=== PATIENT | male | born 1980 | race Caucasian/White ===

== ENCOUNTER 2018-07-18 08:05 | Emergency (ER) | payer OTHER, MEDICAID, SELFPAY ==
[2018-07-18 08:29] VITALS: BP 146/103; PULSE 95; RESP 16; TEMP 36.6; O2SAT 100; BMI 28.7
[2018-07-18 09:46] LABS: Add Manual Diff / Slide Review NO; Basophils Absolute Auto 0 /uL (0-100); Basophils Percent Auto 0.5 % (0-2); Eosinophils Absolute Auto 100 /uL (0-450); Eosinophils Percent Auto 1.4 % (2-4); Hemoglobin 15.5 g/dL (13.5-17.5); Lymphocytes Absolute Auto 2000 /uL (1100-4500); Lymphocytes Percent Auto 25.8 % (25-40); Mean Corpuscular HGB Conc 34.3 % (30-36); Mean Corpuscular Volume 87.4 fL (80-100); Monocytes Absolute Auto 800 /uL (0-900); Monocytes Percent Auto 10.5 % (3-14); Neutrophils Absolute Auto 4700 /uL (1500-7000); Neutrophils Percent Auto 61.8 % (50-75); Platelet Count 239 X10^3/uL (150-400); Red Blood Cell Count 5.15 X10^6/uL (4.5-5.9); Red Cell Distribution Width 12.8 % (11.6-14.8); White Blood Cell Count 7.6 X10^3/uL (4.5-11.0)
[2018-07-18 10:01] LABS: Acetaminophen < 10 ug/mL (10-30); Alanine Aminotransferase 29 IU/L (21-72); Albumin 4.5 g/dL (3.5-5.0); Albumin Globulin Ratio 1.3 (1.0-2.8); Alkaline Phosphatase 76 U/L (38-126); Aspartate Aminotransferase 18 IU/L (17-59); BUN Creatinine Ratio 18.8 (6-22); Bilirubin Total 0.3 mg/dL (0.2-1.3); Blood Urea Nitrogen 15 mg/dL (9-20); Calcium 8.9 mg/dL (8.4-10.2); Carbon Dioxide 30 mmol/L (22-32); Chloride 99 mmol/L (98-107); Estimated Glomerular Filt Rate > 60.0 mL/min (>60); Ethanol (ETOH) < 10 mg/dL; Globulin 3.4 g/dL (1.7-4.1); Glucose 94 mg/dL (70-100); HEMOLYSIS < 15 (0-50); Sodium 139 mmol/L (137-145); Total Protein 7.9 g/dL (6.3-8.2)
[2018-07-18 10:05] LABS: Salicylate < 1.0 mg/dL (<20)
[2018-07-18 10:43] LABS: Thyroid Stimulating Hormone 0.81 uIU/mL (0.47-4.68)
--- NOTE | 2018-07-18 12:12 | ED.PSYCH ---
HPI - Psych General Chief Complaint: Psychiatric Symptoms Stated Complaint: Not feeling right in head Time Seen by Provider: 07/18/18 10:27 Source: patient and family Mode of arrival: ambulatory Limitations: no limitations History of Present Illness HPI Narrative: Patient complains of auditory hallucinations for about the last 6 months, which have gotten especially worse over the last 6 weeks and noticeably worse over the last 2 weeks. Patient states the last several days have been the worst, and that it is as though somebody has a radius station plane his head. Patient states this sometimes he just hears mumbling but then he will hear the voices say negative things about him, such as that he is a ?loser?. Patient denies any suicidal ideation, and he denies the voices telling him to harm himself or others. He states that he has a job, and that it is hard because he feels that the voices interfere with his ability to stay focused at work. Patient does admit to taking methamphetamines for the last couple of years, though he was able to get clean for some months. He states about a year ago, he smelled meth from somebody else using it, and he relapsed. Patient states that he initially was just using the methamphetamines every few days, but now he uses every day. He states that this has been the case for the last several months. Patient also notes that his Paxil, which he is on for anxiety, was increased in dose about 6 weeks ago, and that the symptoms seem to have been getting worse it is that. Patient denies any history of hallucinations ever prior to 6 months ago. He denies a history of depression. 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 Patient also states that his committed suicide while he was deployed, after 8 to mold to us stretch in the relationship, and that happened around this time of year. Patient states that he has been thinking about his a lot more in recent weeks. He states the lack of closure after the difficulties in the relationship, leading up to this suicide, left him with a lot of issues. Patient denies any history of inpatient psychiatric or drug rehabilitation intervention, but states he is interested in doing drug rehab, as he really wants to quit using meth for good. He states that he is otherwise healthy, and not on any other medications. No other complaints at this time. No chest pain, shortness of breath, nausea, vomiting, abdominal pain, dysuria, fevers, cough, or any other physical discomforts. He is not having any visual hallucinations or tactile hallucinations. Related Data Home Medications Medication Instructions Recorded Confirmed paroxetine HCl 40 mg PO DAILY 07/18/18 07/18/18 Allergies Allergy/AdvReac Type Severity Reaction Status Date / Time morphine Allergy Verified 07/18/18 13:34 Review of Systems Constitutional Denies chills, Denies fever(s), Denies lethargy and Denies weakness Eyes Denies change in vision, Denies eye discharge, Denies irritation and Denies loss of vision ENT Ears, Nose, Mouth, and Throat: Denies change in voice, Denies neck pain and Denies sore throat Cardiovascular Denies chest pain, Denies irregular heart rhythm, Denies lightheadedness, Denies palpitations, Denies dyspnea, Denies dyspnea on exertion and Denies orthopnea Respiratory Denies cough, Denies dyspnea, Denies dyspnea on exertion and Denies wheezing Gastrointestinal Gastrointestinal: Denies abdominal pain, Denies change in bowel habits, Denies diarrhea, Denies nausea and Denies vomiting Genitourinary Denies hematuria, Denies flank pain, Denies urinary incontinence and Denies urinary urgency Musculoskeletal Denies neck pain Integumentary/Breasts Denies pruritus, Denies erythema, Denies rash and Denies wounds Neurologic Denies confusion, Denies loss of vision and Denies weakness Psychiatric Denies anxiety, Denies confusion, Denies depression, Reports auditory hallucinations, Denies homicidal ideation and Denies suicidal ideation Endocrine Denies palpitations Hematologic/Lymphatic Denies easy bruising Allergic/Immunologic Denies wheezing [facility] Medical History Psychosis (Acute) Substance abuse (Acute) Social History Smoking Status: Current every day smoker substance use type: amphetamines Social History Smoking Status: Current every day smoker substance use type: amphetamines Exam Initial Vital Signs Initial Vital Signs: Vital Signs Temperature 97.9 F 07/18/18 08:29 Pulse Rate 95 H 07/18/18 08:29 Respiratory Rate 16 07/18/18 08:29 Blood Pressure 146/103 H 07/18/18 08:29 Pulse Oximetry 100 07/18/18 08:29 Const General: cooperative and well developed Nutritional Appearance: well nourished Orientation: alert, awake, oriented x3 and not confused [facility] Head: normocephalic and atraumatic Ears: external ears normal Nose: external nose normal and No nasal discharge Face and sinus: face symmetric and No dry mucous membranes Mouth: oral mucosae normal and moist mucous membranes Teeth and gingiva: dentition normal Eyes General: appearance normal, both eyes and all related structures Eyelids: eyelids normal Conjunctivae: conjunctivae normal Sclera: sclerae normal Pupils: PERRL EOM: EOM intact bilaterally Neck Neck: normal visual inspection, trachea midline, No lymphadenopathy, No midline deformity and No JVD Lymphatic: No lymphedema Chest Chest: normal inspection of the chest Resp Effort & Inspection: normal respiratory effort, able to speak in complete sentences, no respiratory distress and no use of accessory muscles Auscultation: clear to auscultation bilaterally, no rales, no rhonchi and no wheezes Cardio Rate: regular rate Rhythm: regular rhythm Heart Sounds: no click, no gallops, no murmurs and no rubs Pulses: normal peripheral pulses GI Inspection: non-distended Palpation: soft, no hepatosplenomegaly, No guarding, No pulsatile mass and No tender Auscultation: normal bowel sounds Back/Spine/Pelvis Back: No CVA tenderness Cervical Spine: cervical ROM normal and No pain with cervical ROM Thoracic/Lumbar Spine: thoracic and lumbar spine normal to inspection Skin General: no rashes or lesions noted, No jaundice and No petechiae Neuro General: alert, oriented x3, gait normal and no focal motor deficits Speech: speech normal Extrem General: full ROM, no clubbing, cyanosis or edema, no pedal edema and no calf tenderness Psych Appearance: well kempt Mental Status: mental status grossly normal Attitude: cooperative Thought Content: normal and suicidality Judgment: judgment good Course Course Narrative: Patient was medically cleared, and then evaluated by social work professor. We did attempt to get him admitted to [facility], but they stated that they would not take him because the possibility of psychiatric disorder along with his substance abuse. For this reason, options were limited for the patient, and he ultimately decided that he would rather just go home and try to find rehab but as an outpatient. The patient was not currently suicidal or homicidal, and he was not gravely disabled, and I felt that this was reasonable. However, we have discussed that he may need to have his Paxil dose reduced again and may need to discuss different medication options with his doctor. Social work has also arranged for the next social work professor to give the patient a call later today to make sure he is doing okay. Patient has been advised to follow up tomorrow at [facility], which he agrees to do. Orders Ordered: ED Orders 07/18/18 09:34 Acetaminophen Stat Complete Blood Count AUTO DIFF Stat Comprehensive Metabolic Panel Stat Ethanol (ETOH) Stat Salicylate Stat Thyroid Stimulating Hormone Stat 07/18/18 11:35 Urine Drug Screen, Rapid Stat Vital Signs - 8 hr 07/18/18 08:29 Temperature 97.9 F Pulse Rate 95 H Respiratory Rate 16 Blood Pressure 146/103 H Pulse Oximetry 100 MDM - Psych Medical Records Attestation: I reviewed the patient's medical records. Lab Data Attestation: I reviewed the patient's lab results. Result diagrams: 07/18/18 09:34 07/18/18 09:34 Lab Results 07/18/18 07/18/18 07/18/18 Range/Units 09:34 09:34 09:34 WBC 7.6 (4.5-11.0) X10^3/uL RBC 5.15 (4.5-5.9) X10^6/uL Hgb 15.5 (13.5-17.5) g/dL Hct 45.0 (41-53) % MCV 87.4 (80-100) fL MCH 30.0 (26-34) PG MCHC 34.3 (30-36) % RDW 12.8 (11.6-14.8) % Plt Count 239 (150-400) X10^3/uL Neut % (Auto) 61.8 (50-75) % Lymph % (Auto) 25.8 (25-40) % Mccreary % (Auto) 10.5 (3-14) % Eos % (Auto) 1.4 L (2-4) % Baso % (Auto) 0.5 (0-2) % Neut # (Auto) 4700 (8260-7980) /uL Lymph # (Auto) 2000 (3925-1391) /uL Mccreary # (Auto) 800 (0-900) /uL Eos # (Auto) 100 (0-450) /uL Baso # (Auto) 0 (0-100) /uL Sodium 139 (137-145) mmol/L Potassium 4.0 (3.4-5.1) mmol/L Chloride 99 (98-107) mmol/L Carbon Dioxide 30 (22-32) mmol/L BUN 15 (9-20) mg/dL Creatinine 0.80 (0.66-1.25) mg/dL Estimated GFR > 60.0 (>60) mL/min BUN/Creatinine Ratio 18.8 (6-22) Glucose 94 (70-100) mg/dL Calcium 8.9 (8.4-10.2) mg/dL Total Bilirubin 0.3 (0.2-1.3) mg/dL AST 18 (17-59) IU/L ALT 29 (21-72) IU/L Alkaline Phosphatase 76 (38-126) U/L Total Protein 7.9 (6.3-8.2) g/dL Albumin 4.5 (3.5-5.0) g/dL Globulin 3.4 (1.7-4.1) g/dL Albumin/Globulin Ratio 1.3 (1.0-2.8) TSH 0.81 (0.47-4.68) uIU/mL Salicylates < 1.0 (<20) mg/dL Urine Opiates Screen (Negative) Ur Oxycodone Screen (Negative) Urine Methadone Screen (Negative) Acetaminophen < 10 L (10-30) ug/mL Ur Barbiturates Screen (Negative) U Tricyclic Antidepress (Negative) Ur Phencyclidine Scrn (Negative) Ur Amphetamines Screen (Negative) U Methamphetamines Scrn (Negative) Ur MDMA Scrn (Ecstasy) (Negative) U Benzodiazepines Scrn (Negative) Urine Cocaine Screen (Negative) U Marijuana (THC) Screen (Negative) Ethyl Alcohol < 10 mg/dL 07/18/18 Range/Units 11:35 WBC (4.5-11.0) X10^3/uL RBC (4.5-5.9) X10^6/uL Hgb (13.5-17.5) g/dL Hct (41-53) % MCV (80-100) fL MCH (26-34) PG MCHC (30-36) % RDW (11.6-14.8) % Plt Count (150-400) X10^3/uL Neut % (Auto) (50-75) % Lymph % (Auto) (25-40) % Mccreary % (Auto) (3-14) % Eos % (Auto) (2-4) % Baso % (Auto) (0-2) % Neut # (Auto) (2454-6297) /uL Lymph # (Auto) (2435-6904) /uL Mccreary # (Auto) (0-900) /uL Eos # (Auto) (0-450) /uL Baso # (Auto) (0-100) /uL Sodium (137-145) mmol/L Potassium (3.4-5.1) mmol/L Chloride (98-107) mmol/L Carbon Dioxide (22-32) mmol/L BUN (9-20) mg/dL Creatinine (0.66-1.25) mg/dL Estimated GFR (>60) mL/min BUN/Creatinine Ratio (6-22) Glucose (70-100) mg/dL Calcium (8.4-10.2) mg/dL Total Bilirubin (0.2-1.3) mg/dL AST (17-59) IU/L ALT (21-72) IU/L Alkaline Phosphatase (38-126) U/L Total Protein (6.3-8.2) g/dL Albumin (3.5-5.0) g/dL Globulin (1.7-4.1) g/dL Albumin/Globulin Ratio (1.0-2.8) TSH (0.47-4.68) uIU/mL Salicylates (<20) mg/dL Urine Opiates Screen Negative (Negative) Ur Oxycodone Screen Negative (Negative) Urine Methadone Screen Negative (Negative) Acetaminophen (10-30) ug/mL Ur Barbiturates Screen Negative (Negative) U Tricyclic Antidepress Negative (Negative) Ur Phencyclidine Scrn Negative (Negative) Ur Amphetamines Screen Positive H (Negative) U Methamphetamines Scrn Positive H (Negative) Ur MDMA Scrn (Ecstasy) Negative (Negative) U Benzodiazepines Scrn Negative (Negative) Urine Cocaine Screen Negative (Negative) U Marijuana (THC) Screen Negative (Negative) Ethyl Alcohol mg/dL Urine Dip Bedside Urine Glucose Negative Bedside Urine Bilirubin - Negative Bedside Urine Ketone - Negative Urine Specific [place] 1.015 Bedside Urine Occult Blood - Negative Bedside Urine pH 6.0 Bedside Urine Protein - Negative Bedside Urine Urobilinogen - Negative Bedside Urine Nitrite - Negative Bedside Urine Leukocytes +/- [address] scan - head: Attestation: I personally reviewed and interpreted this imaging study as follows: (Negative) Radiologist's impression: PROCEDURE: CT HEAD/BRAIN WO CON INDICATIONS: confusion TECHNIQUE: Noncontrast 4.5 mm thick angled axial sections acquired from the foramen magnum to the vertex, with coronal and sagittal reformats. For radiation dose reduction, the following was used: automated exposure control, adjustment of mA and/or kV according to patient size. COMPARISON: [facility], CT, HEAD WITHOUT CONTRAST, 08/12/2014, 21:42. FINDINGS: Image quality: Excellent. CSF spaces: Basal cisterns are patent. No extra-axial fluid collections. Ventricles are normal in size and shape. Brain: Bilateral ethmoid and maxillary sinus mucosal thickening. No midline shift. No intracranial masses or hemorrhage. Torres-white matter interface is normal. Skull and face: Calvarium and visualized facial bones are intact, without suspicious lesions. Sinuses: Visualized sinuses and mastoids are clear. IMPRESSION: 1. No acute intracranial abnormalities. 2. Bilateral ethmoidal and maxillary sinus disease. Dictated by: Juan Carlos Curiel M.D. on 07/18/2018 at 13:35 Approved by: Juan Carlos Curiel M.D. on 07/18/2018 at 13:52 Discharge Plan Departure Patient Disposition: Home Clinical Impression: Acute psychosis, Methamphetamine abuse Discharge Date/Time: 07/18/18 15:25 Interventions: ED Discharge Assessment Last Done: 07/18/18 15:07 Instructions: DI for Drug Abuse and Drug Addiction, DI for Psychosis Activity Restrictions/Additional Instructions: Please follow up, as you have been advised to do, for your hallucinations. Please also continue your plan to get help with your drug abuse. If any symptoms worsen, please return to the Emergency Department without delay. Prescriptions: No Action paroxetine HCl 40 mg tablet 40 mg PO DAILY RF: 0 Referrals: [facility] [Provider Group]
[2018-07-18 12:16] LABS: Urine Amphetamines Positive (Negative); Urine Barbiturates Negative (Negative); Urine Benzodiazepines Negative (Negative); Urine Cocaine Negative (Negative); Urine MDMA Negative (Negative); Urine Methadone Negative (Negative); Urine Methamphetamines Positive (Negative); Urine Morphine/Opi cutoff 2000 Negative (Negative); Urine Oxycodone Negative (Negative); Urine Phencyclidine Negative (Negative); Urine Tetrahydrocannabinol Negative (Negative); Urine Tricyclic Antidepressant Negative (Negative)
--- NOTE | 2018-07-18 12:16 | ED_ITS ---
HPI - Psych General Chief Complaint: Psychiatric Symptoms Stated Complaint: Not feeling right in head Time Seen by Provider: 07/18/18 10:27 Source: patient and family Mode of arrival: ambulatory Limitations: no limitations History of Present Illness HPI Narrative: Patient complains of auditory hallucinations for about the last 6 months, which have gotten especially worse over the last 6 weeks and noticeably worse over the last 2 weeks. Patient states the last several days have been the worst, and that it is as though somebody has a radius station plane his head. Patient states this sometimes he just hears mumbling but then he will hear the voices say negative things about him, such as that he is a ?loser?. Patient denies any suicidal ideation, and he denies the voices telling him to harm himself or others. He states that he has a job, and that it is hard because he feels that the voices interfere with his ability to stay focused at work. Patient does admit to taking methamphetamines for the last couple of years, though he was able to get clean for some months. He states about a year ago, he smelled meth from somebody else using it, and he relapsed. Patient states that he initially was just using the methamphetamines every few days, but now he uses every day. He states that this has been the case for the last several months. Patient also notes that his Paxil, which he is on for anxiety, was increased in dose about 6 weeks ago, and that the symptoms seem to have been getting worse it is that. Patient denies any history of hallucinations ever prior to 6 months ago. He denies a history of depression. 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 Patient also states that his committed suicide while he was deployed, after 8 to mold to us stretch in the relationship, and that happened around this time of year. Patient states that he has been thinking about his a lot more in recent weeks. He states the lack of closure after the difficulties in the relationship, leading up to this suicide, left him with a lot of issues. Patient denies any history of inpatient psychiatric or drug rehabilitation intervention, but states he is interested in doing drug rehab, as he really wants to quit using meth for good. He states that he is otherwise healthy, and not on any other medications. No other complaints at this time. No chest pain, shortness of breath, nausea, vomiting, abdominal pain, dysuria, fevers, cough, or any other physical discomforts. He is not having any visual hallucinations or tactile hallucinations. Related Data Home Medications Medication Instructions Recorded Confirmed paroxetine HCl 40 mg PO DAILY 07/18/18 07/18/18 Allergies Allergy/AdvReac Type Severity Reaction Status Date / Time morphine Allergy Verified 07/18/18 13:34 Review of Systems Constitutional Denies chills, Denies fever(s), Denies lethargy and Denies weakness Eyes Denies change in vision, Denies eye discharge, Denies irritation and Denies loss of vision ENT Ears, Nose, Mouth, and Throat: Denies change in voice, Denies neck pain and Denies sore throat Cardiovascular Denies chest pain, Denies irregular heart rhythm, Denies lightheadedness, Denies palpitations, Denies dyspnea, Denies dyspnea on exertion and Denies orthopnea Respiratory Denies cough, Denies dyspnea, Denies dyspnea on exertion and Denies wheezing Gastrointestinal Gastrointestinal: Denies abdominal pain, Denies change in bowel habits, Denies diarrhea, Denies nausea and Denies vomiting Genitourinary Denies hematuria, Denies flank pain, Denies urinary incontinence and Denies urinary urgency Musculoskeletal Denies neck pain Integumentary/Breasts Denies pruritus, Denies erythema, Denies rash and Denies wounds Neurologic Denies confusion, Denies loss of vision and Denies weakness Psychiatric Denies anxiety, Denies confusion, Denies depression, Reports auditory hallucinations, Denies homicidal ideation and Denies suicidal ideation Endocrine Denies palpitations Hematologic/Lymphatic Denies easy bruising Allergic/Immunologic Denies wheezing [facility] Medical History Psychosis (Acute) Substance abuse (Acute) Social History Smoking Status: Current every day smoker substance use type: amphetamines Social History Smoking Status: Current every day smoker substance use type: amphetamines Exam Initial Vital Signs Initial Vital Signs: Vital Signs Temperature 97.9 F 07/18/18 08:29 Pulse Rate 95 H 07/18/18 08:29 Respiratory Rate 16 07/18/18 08:29 Blood Pressure 146/103 H 07/18/18 08:29 Pulse Oximetry 100 07/18/18 08:29 Const General: cooperative and well developed Nutritional Appearance: well nourished Orientation: alert, awake, oriented x3 and not confused [facility] Head: normocephalic and atraumatic Ears: external ears normal Nose: external nose normal and No nasal discharge Face and sinus: face symmetric and No dry mucous membranes Mouth: oral mucosae normal and moist mucous membranes Teeth and gingiva: dentition normal Eyes General: appearance normal, both eyes and all related structures Eyelids: eyelids normal Conjunctivae: conjunctivae normal Sclera: sclerae normal Pupils: PERRL EOM: EOM intact bilaterally Neck Neck: normal visual inspection, trachea midline, No lymphadenopathy, No midline deformity and No JVD Lymphatic: No lymphedema Chest Chest: normal inspection of the chest Resp Effort & Inspection: normal respiratory effort, able to speak in complete sentences, no respiratory distress and no use of accessory muscles Auscultation: clear to auscultation bilaterally, no rales, no rhonchi and no wheezes Cardio Rate: regular rate Rhythm: regular rhythm Heart Sounds: no click, no gallops, no murmurs and no rubs Pulses: normal peripheral pulses GI Inspection: non-distended Palpation: soft, no hepatosplenomegaly, No guarding, No pulsatile mass and No tender Auscultation: normal bowel sounds Back/Spine/Pelvis Back: No CVA tenderness Cervical Spine: cervical ROM normal and No pain with cervical ROM Thoracic/Lumbar Spine: thoracic and lumbar spine normal to inspection Skin General: no rashes or lesions noted, No jaundice and No petechiae Neuro General: alert, oriented x3, gait normal and no focal motor deficits Speech: speech normal Extrem General: full ROM, no clubbing, cyanosis or edema, no pedal edema and no calf tenderness Psych Appearance: well kempt Mental Status: mental status grossly normal Attitude: cooperative Thought Content: normal and suicidality Judgment: judgment good Course Course Narrative: Patient was medically cleared, and then evaluated by director of social work. We did attempt to get him admitted to the Crisis Center, but they stated that they would not take him because the possibility of psychiatric disorder along with his substance abuse. For this reason, options were limited for the patient, and he ultimately decided that he would rather just go home and try to find rehab but as an outpatient. The patient was not currently suicidal or homicidal, and he was not gravely disabled, and I felt that this was reasonable. However, we have discussed that he may need to have his Paxil dose reduced again and may need to discuss different medication options with his doctor. Social work has also arranged for the next director of social work to give the patient a call later today to make sure he is doing okay. Patient has been advised to follow up tomorrow at [facility], which he agrees to do. Orders Ordered: ED Orders 07/18/18 09:34 Acetaminophen Stat Complete Blood Count AUTO DIFF Stat Comprehensive Metabolic Panel Stat Ethanol (ETOH) Stat Salicylate Stat Thyroid Stimulating Hormone Stat 07/18/18 11:35 Urine Drug Screen, Rapid Stat Vital Signs - 8 hr 07/18/18 08:29 Temperature 97.9 F Pulse Rate 95 H Respiratory Rate 16 Blood Pressure 146/103 H Pulse Oximetry 100 MDM - Psych Medical Records Attestation: I reviewed the patient's medical records. Lab Data Attestation: I reviewed the patient's lab results. Result diagrams: 07/18/18 09:34 07/18/18 09:34 Lab Results 07/18/18 07/18/18 07/18/18 Range/Units 09:34 09:34 09:34 WBC 7.6 (4.5-11.0) X10^3/uL RBC 5.15 (4.5-5.9) X10^6/uL Hgb 15.5 (13.5-17.5) g/dL Hct 45.0 (41-53) % MCV 87.4 (80-100) fL MCH 30.0 (26-34) PG MCHC 34.3 (30-36) % RDW 12.8 (11.6-14.8) % Plt Count 239 (150-400) X10^3/uL Neut % (Auto) 61.8 (50-75) % Lymph % (Auto) 25.8 (25-40) % [place] % (Auto) 10.5 (3-14) % Eos % (Auto) 1.4 L (2-4) % Baso % (Auto) 0.5 (0-2) % Neut # (Auto) 4700 (0100-7498) /uL Lymph # (Auto) 2000 (4425-4769) /uL [place] # (Auto) 800 (0-900) /uL Eos # (Auto) 100 (0-450) /uL Baso # (Auto) 0 (0-100) /uL Sodium 139 (137-145) mmol/L Potassium 4.0 (3.4-5.1) mmol/L Chloride 99 (98-107) mmol/L Carbon Dioxide 30 (22-32) mmol/L BUN 15 (9-20) mg/dL Creatinine 0.80 (0.66-1.25) mg/dL Estimated GFR > 60.0 (>60) mL/min BUN/Creatinine Ratio 18.8 (6-22) Glucose 94 (70-100) mg/dL Calcium 8.9 (8.4-10.2) mg/dL Total Bilirubin 0.3 (0.2-1.3) mg/dL AST 18 (17-59) IU/L ALT 29 (21-72) IU/L Alkaline Phosphatase 76 (38-126) U/L Total Protein 7.9 (6.3-8.2) g/dL Albumin 4.5 (3.5-5.0) g/dL Globulin 3.4 (1.7-4.1) g/dL Albumin/Globulin Ratio 1.3 (1.0-2.8) TSH 0.81 (0.47-4.68) uIU/mL Salicylates < 1.0 (<20) mg/dL Urine Opiates Screen (Negative) Ur Oxycodone Screen (Negative) Urine Methadone Screen (Negative) Acetaminophen < 10 L (10-30) ug/mL Ur Barbiturates Screen (Negative) U Tricyclic Antidepress (Negative) Ur Phencyclidine Scrn (Negative) Ur Amphetamines Screen (Negative) U Methamphetamines Scrn (Negative) Ur MDMA Scrn (Ecstasy) (Negative) U Benzodiazepines Scrn (Negative) Urine Cocaine Screen (Negative) U Marijuana (THC) Screen (Negative) Ethyl Alcohol < 10 mg/dL 07/18/18 Range/Units 11:35 WBC (4.5-11.0) X10^3/uL RBC (4.5-5.9) X10^6/uL Hgb (13.5-17.5) g/dL Hct (41-53) % MCV (80-100) fL MCH (26-34) PG MCHC (30-36) % RDW (11.6-14.8) % Plt Count (150-400) X10^3/uL Neut % (Auto) (50-75) % Lymph % (Auto) (25-40) % [place] % (Auto) (3-14) % Eos % (Auto) (2-4) % Baso % (Auto) (0-2) % Neut # (Auto) (7174-7086) /uL Lymph # (Auto) (6293-4223) /uL [place] # (Auto) (0-900) /uL Eos # (Auto) (0-450) /uL Baso # (Auto) (0-100) /uL Sodium (137-145) mmol/L Potassium (3.4-5.1) mmol/L Chloride (98-107) mmol/L Carbon Dioxide (22-32) mmol/L BUN (9-20) mg/dL Creatinine (0.66-1.25) mg/dL Estimated GFR (>60) mL/min BUN/Creatinine Ratio (6-22) Glucose (70-100) mg/dL Calcium (8.4-10.2) mg/dL Total Bilirubin (0.2-1.3) mg/dL AST (17-59) IU/L ALT (21-72) IU/L Alkaline Phosphatase (38-126) U/L Total Protein (6.3-8.2) g/dL Albumin (3.5-5.0) g/dL Globulin (1.7-4.1) g/dL Albumin/Globulin Ratio (1.0-2.8) TSH (0.47-4.68) uIU/mL Salicylates (<20) mg/dL Urine Opiates Screen Negative (Negative) Ur Oxycodone Screen Negative (Negative) Urine Methadone Screen Negative (Negative) Acetaminophen (10-30) ug/mL Ur Barbiturates Screen Negative (Negative) U Tricyclic Antidepress Negative (Negative) Ur Phencyclidine Scrn Negative (Negative) Ur Amphetamines Screen Positive H (Negative) U Methamphetamines Scrn Positive H (Negative) Ur MDMA Scrn (Ecstasy) Negative (Negative) U Benzodiazepines Scrn Negative (Negative) Urine Cocaine Screen Negative (Negative) U Marijuana (THC) Screen Negative (Negative) Ethyl Alcohol mg/dL Urine Dip Bedside Urine Glucose Negative Bedside Urine Bilirubin - Negative Bedside Urine Ketone - Negative Urine Specific [place] 1.015 Bedside Urine Occult Blood - Negative Bedside Urine pH 6.0 Bedside Urine Protein - Negative Bedside Urine Urobilinogen - Negative Bedside Urine Nitrite - Negative Bedside Urine Leukocytes +/- [address] scan - head: Attestation: I personally reviewed and interpreted this imaging study as follows: (Negative) Radiologist's impression: PROCEDURE: CT HEAD/BRAIN WO CON INDICATIONS: confusion TECHNIQUE: Noncontrast 4.5 mm thick angled axial sections acquired from the foramen magnum to the vertex, with coronal and sagittal reformats. For radiation dose reduction, the following was used: automated exposure control, adjustment of mA and/or kV according to patient size. COMPARISON: [facility], CT, HEAD WITHOUT CONTRAST, 08/12/2014, 21:42. FINDINGS: Image quality: Excellent. CSF spaces: Basal cisterns are patent. No extra-axial fluid collections. V entricles are normal in size and shape. Brain: Bilateral ethmoid and maxillary sinus mucosal thickening. No midline shift. No intracranial masses or hemorrhage. Torres-white matter interface is normal. Skull and face: Calvarium and visualized facial bones are intact, without suspicious lesions. Sinuses: Visualized sinuses and mastoids are clear. IMPRESSION: 1. No acute intracranial abnormalities. 2. Bilateral ethmoidal and maxillary sinus disease. Dictated by: Juan Carlos Curiel M.D. on 07/18/2018 at 13:35 Approved by: Juan Carlos Curiel M.D. on 07/18/2018 at 13:52 Discharge Plan Departure Patient Disposition: Home Clinical Impression: Acute psychosis, Methamphetamine abuse Discharge Date/Time: 07/18/18 15:25 Interventions: ED Discharge Assessment Last Done: 07/18/18 15:07 Instructions: DI for Drug Abuse and Drug Addiction, DI for Psychosis Activity Restrictions/Additional Instructions: Please follow up, as you have been advised to do, for your hallucinations. Please also continue your plan to get help with your drug abuse. If any sym ptoms worsen, please return to the Emergency Department without delay. Prescriptions: No Action paroxetine HCl 40 mg tablet 40 mg PO DAILY RF: 0 Referrals: [facility] [Provider Group]
--- NOTE | 2018-07-18 13:20 | DI.CT.S_ITS ---
PROCEDURE: CT HEAD/BRAIN WO CON INDICATIONS: confusion TECHNIQUE: Noncontrast 4.5 mm thick angled axial sections acquired from the foramen magnum to the vertex, with coronal and sagittal reformats. For radiation dose reduction, the following was used: automated exposure control, adjustment of mA and/or kV according to patient size. COMPARISON: [facility], CT, HEAD WITHOUT CONTRAST, 08/12/2014, 21:42. FINDINGS: Image quality: Excellent. CSF spaces: Basal cisterns are patent. No extra-axial fluid collections. Ventricles are normal in size and shape. Brain: Bilateral ethmoid and maxillary sinus mucosal thickening. No midline shift. No intracranial masses or hemorrhage. Torres-white matter interface is normal. Skull and face: Calvarium and visualized facial bones are intact, without suspicious lesions. Sinuses: Visualized sinuses and mastoids are clear. IMPRESSION: 1. No acute intracranial abnormalities. 2. Bilateral ethmoidal and maxillary sinus disease. Dictated by: Juan Carlos Curiel M.D. on 07/18/2018 at 13:35 Approved by: Juan Carlos Curiel M.D. on 07/18/2018 at 13:52
--- NOTE | 2018-07-18 13:47 | PC.NURSE ---
Called in-house social work. They are currently not available to come down to see patient. Suggested we call crisis center or crisis line for outpatient treatment. Patient is requesting inpatient treatment. Called crisis center and stated they do not do mental health admits, they are strictly detox. Called [facility] and spoke with Dayami who took patient's intake information. Faxing records and awaiting callback. Pt is agreeable to plan. Ordered diet tray for him.
--- NOTE | 2018-07-18 13:52 | PC.NURSE ---
lunch given on preventative plate/tray. appreciative for meal.
--- NOTE | 2018-07-18 14:32 | PC.NURSE ---
Obdulia from Social Work here to see patient.
--- NOTE | 2018-07-18 14:45 | PC.NURSE ---
Mother pulled staff aside and expressed her concern about her son. Mother stated that there has been a significant increase in aggression, paranoia, auditory hallucination. Patient recently looking for his gun, mother reports that she had hid the gun secondary to her concern for his behavior. Mother reports she will be removing all the guns from the house to be safe.
[2018-07-18 15:07] VITALS: BP 134/91; PULSE 91; RESP 12; O2SAT 100
--- NOTE | 2018-07-18 15:51 | CM.SWNOTE ---
ENGINE BUILDER Note: Received call from RN/Alina at approximately noon today requesting ENGINE BUILDER assistance with voluntary mental health/substance abuse placement. Patient is a 38yr old male that came to ED with complaints of hearing voices. Met with patient explained ENGINE BUILDER role. Patient reports that his Mother/Anna brought him to the Emergency Department. Patient alert and oriented during visit today. Patient reports that he has been hearing voices for approximately the last month. Patient associates the voices to change in his paxil dose. Dr. Cardona is PCP and provider of all medications. Patient's paxil increased by 10mg to 40mg about a month ago due to what patient describes as lack of effectiveness and anxiety. Patient denies any mental health or psychiatric treatment for anxiety. Patient was in the [employer] for 8yrs and resides with his 11yr old son and Mother in [place]. Patient's spouse committed suicide July of 2011. Patient reports that he believes that she did it because she was cheating on me and feeling guilty. Patient denies any previous suicide attempts. Patient admits to active methamphetamine use. Tox screen was positive. Patient denies current thoughts of suicide. Patient does admit to previous thoughts but never developed a plan. Patient last thought of suicide last week but reports it was a quick thought and that his love for his son snapped him out of it. Patient denies having any weapons in the home. Patient requesting to return home today. He would like to follow up with [facility] and get established with their mental health/substance abuse programs. Provided patient with all the information. Spoke with MD in ED she confirms that patient has denied suicidal ideation and she feels comfortable sending him home with resources to follow up. In addition, left demographic sheet with ENGINE BUILDER covering tonight to call and check on patient if time allowed. Otherwise, patient instructed to use the resources provided in crisis and for enrolling in services. P: Home. Resources provided. SURY hCanel
--- NOTE | 2018-07-18 17:32 | CM.SWNOTE ---
ED DEMAND PLANNER NOTE CARTOGRAPHY/MAPPING TECHNICIAN was asked to follow oup with this pt who was seen in the ED earlier today. After reviewing notes by Pt's RN, doctor and social work, called the phone # on the facesheet. [phone], but mailbox was full and unable to leave a message. Since pt's mother was present with him for the ED visit and number was left, DEMAND PLANNER called mother's phone number [phone] and offered to provide resources. I had read the information and was aware of pt's deployment and the of his father and 's suicide during his deployment. Pt's mother was aware of pt's drug use and mentioned the voices and increased paranoia. She informed me that her son was sleeping and had been asleep since leaving the ED. She asked what she could do and what he should be doing. Inquired if she wanted me to provide some resources that they can follow up with and she responded affirmatively. Resources provided: 1. [employer]/ care crisis line [phone] (11/10) 2. [facility] ( Crisis Prevention and Intervention team) can call above number ( can come out to meet with pt if needed) 3. [facility] (detox/ mental health crisis [phone]) 4. [facility] [phone] outpt for substance abuse and mental health 5. [facility] [phone] Call for availability re beds 6. [facility] [phone] Informed mother that there is a unit for veterans) DEMAND PLANNER told mother that this clinician is here until 8:30 PM this evening and available to speak with pt or her if there are questions.
== END 2018-07-18 15:25 | disposition home or self-care (01) ==
PROVIDERS: Emergency Provider Emergency Medicine
DX: F23 Brief psychotic disorder (principal); F15.10 Other stimulant abuse, uncomplicated
CPT/HCPCS: 36415; 70450; 80053; 80305; 80320; 80329; 81003; 84443; 85025; 99283; 99284; 99291; G0480

== ENCOUNTER → 2025-01-29 12:31 | Outpatient (ROUT) | payer MEDICAID, SELFPAY ==
[2025-01-29 13:48] LABS: Influenza A - CEPHEID Flu A NEGATIVE (NEGATIVE); Influenza B - CEPHEID Flu B NEGATIVE (NEGATIVE)
[2025-01-29 13:50] LABS: COVID-19 CEPHEID 4-PLEX PCR Negative (Negative)
== END ==
PROVIDERS: Visit Provider Family Medicine
DX: R05.1 Acute cough (principal)
CPT/HCPCS: 87637